=== PATIENT | female | born 1975 | race Caucasian/White ===

== ENCOUNTER 2017-07-01 11:00 | Emergency (ER) | payer OTHER ==
[~2017-07-01] VITALS: Ht 165.1 cm; Wt 109.3 kg
[~2017-07-01 11:00] MED LIST: APRESOLINE 10MG10 MG PO; BISOPROLOL 5MG T5 MG PO; BISOPROLOL FUMA1 TA3 PO; BYSTOLIC5 MG PO; CIPRO 500MG TA500 MG PO; HYDROCHLOROTHIA25 M1 PO; IBUPROFEN400 MG PO; LISINOPRIL 10MG10 MG PO; LISINOPRIL 5MG T5 MG NG; LISINOPRIL40 MG PO; NAPROXEN SODIU500 MG PO; OMNICEF 300 MG300 MG PO; POTASSIUM CHLO20 ME2 PO; PREDNISONE 20MG20 MG PO; TRAMADOL 50MG T50 MG PO; TRIAMTERENE AND1 CAP PO; VERAPAMIL HCL40 MG PO; VICODIN 5/500 T1 TAB PO; ZIAC 5 MG-6.251 TAB PO
[2017-07-01] MEDS ORDERED: BISOPROLOL FUMA10 MG PO (11:09)
[2017-07-01] MEDS ORDERED: HYDROCHLOROTHIA25 M1 PO (11:10)
[2017-07-01] MEDS ORDERED: APRESOLINE 10MG10 MG PO (11:11)
[2017-07-01 11:23] LABS: HEMOGLOBIN 12.9 g/dL (12.2-16.2); LYMPH # 3.4 K/mm3 (0.7-4.5)
--- NOTE | 2017-07-01 11:23 | Emergency Room Report ---
History of Present Illness Time Seen by MD Walker Presenting Problem in Triage Pt arrived:Walked Presenting Problem:PT REPORTS SQUEEZING TYPE MIDDLE STERNAL CHEST PAIN THAT IS RADIATING IN A SHARP MANNER TO L ARM PT STATES PAIN BEGAN LASTNIGHT AROUND 2230 PM WHILE AT WORK. PT REPORTS HAS HAD NAUSEA AND DIZZINESS INTERMITTENTLY SINCE PAIN BEGAN. PT WAS AT DR. 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 N Clinical Suspician of Infection? N Mental Status: 1 - Regular (Normal Baseline) Sepsis Risk:Low Sepsis Risk Have you (or family members/close friends) recently traveled outside the [place]? N If Yes, where/when: Have you had exposure to infectious disease within the past month? N TB? Other? Specify: Patient had pain to left chest last night at 2230 while at work; denies SOB, reports some mild nausea, no vomiting or abdominal pain, no calf pain or new edema, no diaphoresis, no syncope. Referred by PCP due to continued pain through today. It waxes and wanes, feels "tight", and radiates to LUE and to back and neck. No cough. Not positional. Denies known CAD, reports that she has neg hx DM , does have HTN, does not have hyperlipidemia, quite smoking in 2013, but does not have any FH of known CAD. ALLERGIES Coded Allergies: amoxicillin ("NERVOUS" 07/01/17) codeine ("SKIN CRAWL" 07/01/17) Home Medications Active Scripts POTASSIUM CHL (Potassium Chloride) 20 MEQ PO DAILY #30 TAB Ref 5 Prov: 10/11/14 Reported Medications Lisinopril (Lisinopril 40MG) 40 MG PO DAILY Bisoprolol Fumarate 10 MG PO BID HYDROCHLOROTHIAZIDE (Hydrochlorothiazide) 25 MG PO BID HYDRALAZINE HCL (Hydralazine HCl) 10 MG PO DAILY History Medical History General CAD? No Angina: No NC: No Hypertension? Yes Hyperlipidemia? No CHF? No DVT? No PE? No COPD? No Asthma? Yes Anemia? No GERD? No Gastric ulcers? No GI Bleed? No Hernia? No Thyroid Problems? No Hypothyroidism? No CVA? No Seizures? No Diabetes? No Renal Insuffiency? No End Stage Renal Disease? No UTI? Yes Stones? Yes GB Disease: No Nephritic Syndrome? No Asplenia? No Hepatitis? No Sickle Cell Disease? No Arthritis? Yes Migraines? No Cataracts? No Glaucoma? No MRSA? No HIV? No TB? No Anxiety? No Depression? No Cancer? 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 LMP 1-6 Days Ago Family History Family Hx Diabetes No CAD No Hypertension No Hyperlipidemia Yes Cancer Yes TB Yes Social History Smoking Hx Smoker: Former Smoker Tobacco: No Packs/day < 1 Pack Alcohol Alcohol: No Review of Systems All Other Systems Reviewed and Negative Cardiovascular see HPI Physical Exam Vital Signs Vital Signs Date Time Temp Pulse Resp B/P Pulse O2 O2 Flow FiO2 Ox Delivery Rate 07/01 1100 98.2 79 18 190/92 98 General Appearance normal appearance, WD/WN, no apparent distress Eye Exam - bilateral eye normal exam, bilateral eye PERRL Neck normal inspection, non-tender, supple, full range of motion (anterior scar, old, horizontal) Respiratory Status Yes: trachea midline, chest symmetrical, non tender chest. No: respiratory distress, tender on palpation, use of accessory muscles, pain on inspiration, pain on expiration, productive cough, non productive cough. Lung Sounds bilateral: normal breath sounds, lungs clear. Cardiovascular normal exam, regular rate/rhythm, no peripheral edema, no gallop, no JVD, no murmur, no rub, normal peripheral pulses Peripheral Pulses Pulses normal Yes Peripheral Pulses 2+ dorsalis pedis (R), 2+ dorsalis pedis (L) Gastrointestinal normal bowel sounds, normal exam, non tender, soft, no organomegaly, no guarding, no rebound Extremities non-tender, normal range of motion, normal inspection, normal capillary refill, no calf tenderness, no pedal edema Strength 5 Upper Ext (L), 5 Upper Ext (R), 5 Lower Ext (L), 5 Lower Ext (R) Neurologic alert, normal exam, no motor/sensory deficits, oriented x 3 Glascow Coma Scale Glascow Coma Scale Response Value EYE response: 4 Spontaneously 4 MOTOR response: 6 OBEYS 6 VERBAL response: 5 Oriented & Converses 5 Total 15 Skin intact, normal color, abrasions Medical Decision Making LABS/Meds/Orders Pt receiving controlled substance in ED? No Results/Orders Laboratory Tests 07/01/171114: Sodium 141, Potassium 3.4 L, Chloride 103, Carbon Dioxide 31, BUN 12, Creatinine 0.7, Estimated Creat Clear 184, Estimated GFR (MDRD) 93, Glucose 109 H, Calcium 9.0, Total Bilirubin 0.2, AST 24, ALT 33, Alkaline Phosphatase 72, Creatine Kinase 137, CK-MB (CK-2) Rel Index 0.4, CK and CKMB Interp 0.5, Troponin I < 0.02, Total Protein 8.1, Albumin 3.9, Globulin 4.2 H, Albumin/ Globulin Ratio 0.9 L, WBC 12.7 H, RBC 4.80, Hgb 12.9, Hct 39.7, MCV 82.6, RDW 13.9, Plt Count 356, MPV 7.8, Gran % 65.4, Gran # 8.3 H, Lymphocytes % 27.0, Monocytes % 5.4, Eosinophils % 1.8, Basophils % 0.4, Lymphocytes # 3.4, Monocytes # 0.7, Eosinophils # 0.2, Basophils # 0.1, PUBS MCHC 32.4, MCH 26.8 L Current Medication Orders Sig/Connie Start time Last Medication Dose Route Stop Time Status Admin Aspirin 324 MG ONCE ONE 07/01 1130 DC 07/01 PO 07/01 113 1126 Aspirin 0 .STK-MED ONE 07/01 112 DC .ROUTE Sodium Chloride 10 ML PRN PRN 07/01 1115 AC 07/01 IV 07/02 1112 1126 Orders Procedure Date/time Status ELECTROCARDIOGRAM REQUEST 07/01 111 Active CHEST(2 VIEWS-NOT PORTABLE) 07/01 111 Active IV SALINE LOCK 07/01 111 Active HEALTH AND SAFETY CONSULTANT 07/01 1112 Active CBC WITH AUTO DIFF 07/01 1112 Complete CARDIAC ENZYMES 07/01 1112 Complete CHEM 12 PROFILE 07/01 111 Complete 12 LEAD EKG-ARUN (INITIAL) 07/01 1110 Active CM/EKG CM/EKG EKG rate, NSR, rhythm, no evid. of ischemic chgs, no ectopy, normal QRS, normal CA, normal EKG (NSR 75;) XRAY/CT/US XRAY/CT/US XRAY chest XR interpretation by reviewed by me Xray Results normal/NAD (neg acute; hx sarcoidosis) Consult MD Physician Consult Time Called 1212 Reason Pt. Condition Comments Dr. Dias courtesy call Departure Departure Time of Disposition 1213 Disposition DC Home or Self Care(routine) Clinical Impression Primary Impression: Atypical chest pain Condition STABLE Referrals rAun ESTEBAN,Samson Goode (Family) Satnam ESTEBAN, Ruddy Patient Instructions DI for Atypical Chest Pain Additional Instructions Take low dose "baby aspirin" 81 mg by mouth daily per Dr. Dias; take one nitroglycerin tablet as needed for any chest pain in the future and go to closest ER if experiencing chest pain; see Dr. Hay in cardiology for further evaluation outpatient, call for appointment. Discharge Counseling Counseled pt/family regarding diagnosis, test results, medications/RX, home care, follow up needs Prescriptions Current Visit Scripts NITROGLYCERIN (Nitrostat) 0.4 MG SL [id number] PRN chest pain #10 TABLET ED Critical Care Critical Care No at 1217
--- NOTE | 2017-07-01 11:23 | Emergency Room Report ---
History of Present Illness Time Seen by MD Walker Presenting Problem in Triage Pt arrived:Walked Presenting Problem:PT REPORTS SQUEEZING TYPE MIDDLE STERNAL CHEST PAIN THAT IS RADIATING IN A SHARP MANNER TO L ARM PT STATES PAIN BEGAN LASTNIGHT AROUND 2230 PM WHILE AT WORK. PT REPORTS HAS HAD NAUSEA AND DIZZINESS INTERMITTENTLY SINCE PAIN BEGAN. PT WAS AT DR. 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 N Clinical Suspician of Infection? N Mental Status: 1 - Regular (Normal Baseline) Sepsis Risk:Low Sepsis Risk Have you (or family members/close friends) recently traveled outside the [place]? N If Yes, where/when: Have you had exposure to infectious disease within the past month? N TB? Other? Specify: Patient had pain to left chest last night at 2230 while at work; denies SOB, reports some mild nausea, no vomiting or abdominal pain, no calf pain or new edema, no diaphoresis, no syncope. Referred by PCP due to continued pain through today. It waxes and wanes, feels "tight", and radiates to LUE and to back and neck. No cough. Not positional. Denies known CAD, reports that she has neg hx DM , does have HTN, does not have hyperlipidemia, quite smoking in 2013, but does not have any FH of known CAD. ALLERGIES Coded Allergies: amoxicillin ("NERVOUS" 07/01/17) codeine ("SKIN CRAWL" 07/01/17) Home Medications Active Scripts POTASSIUM CHL (Potassium Chloride) 20 MEQ PO DAILY #30 TAB Ref 5 Prov: 10/11/14 Reported Medications Lisinopril (Lisinopril 40MG) 40 MG PO DAILY Bisoprolol Fumarate 10 MG PO BID HYDROCHLOROTHIAZIDE (Hydrochlorothiazide) 25 MG PO BID HYDRALAZINE HCL (Hydralazine HCl) 10 MG PO DAILY History Medical History General CAD? No Angina: No NM: No Hypertension? Yes Hyperlipidemia? No CHF? No DVT? No PE? No COPD? No Asthma? Yes Anemia? No GERD? No Gastric ulcers? No GI Bleed? No Hernia? No Thyroid Problems? No Hypothyroidism? No CVA? No Seizures? No Diabetes? No Renal Insuffiency? No End Stage Renal Disease? No UTI? Yes Stones? Yes GB Disease: No Nephritic Syndrome? No Asplenia? No Hepatitis? No Sickle Cell Disease? No Arthritis? Yes Migraines? No Cataracts? No Glaucoma? No MRSA? No HIV? No TB? No Anxiety? No Depression? No Cancer? 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 Family History Family Hx Diabetes No CAD No Hypertension No Hyperlipidemia Yes Cancer Yes TB Yes Social History Smoking Hx Smoker: Former Smoker Tobacco: No Packs/day < 1 Pack Alcohol Alcohol: No Review of Systems All Other Systems Reviewed and Negative Cardiovascular see HPI Physical Exam Vital Signs Vital Signs Date Time Temp Pulse Resp B/P Pulse O2 O2 Flow FiO2 Ox Delivery Rate 07/01 1100 98.2 79 18 190/92 98 General Appearance normal appearance, WD/WN, no apparent distress Eye Exam - bilateral eye normal exam, bilateral eye PERRL Neck normal inspection, non-tender, supple, full range of motion (anterior scar, old, horizontal) Respiratory Status Yes: trachea midline, chest symmetrical, non tender chest. No: respiratory distress, tender on palpation, use of accessory muscles, pain on inspiration, pain on expiration, productive cough, non productive cough. Lung Sounds bilateral: normal breath sounds, lungs clear. Cardiovascular normal exam, regular rate/rhythm, no peripheral edema, no gallop, no JVD, no murmur, no rub, normal peripheral pulses Peripheral Pulses Pulses normal Yes Peripheral Pulses 2+ dorsalis pedis (R), 2+ dorsalis pedis (L) Gastrointestinal normal bowel sounds, normal exam, non tender, soft, no organomegaly, no guarding, no rebound Extremities non-tender, normal range of motion, normal inspection, normal capillary refill, no calf tenderness, no pedal edema Strength 5 Upper Ext (L), 5 Upper Ext (R), 5 Lower Ext (L), 5 Lower Ext (R) Neurologic alert, normal exam, no motor/sensory deficits, oriented x 3 Glascow Coma Scale Glascow Coma Scale Response Value EYE response: 4 Spontaneously 4 MOTOR response: 6 OBEYS 6 VERBAL response: 5 Oriented & Converses 5 Total 15 Skin intact, normal color, abrasions Medical Decision Making LABS/Meds/Orders Pt receiving controlled substance in ED? No Results/Orders Laboratory Tests 07/01/171114: Sodium 141, Potassium 3.4 L, Chloride 103, Carbon Dioxide 31, BUN 12, Creatinine 0.7, Estimated Creat Clear 184, Estimated GFR (MDRD) 93, Glucose 109 H, Calcium 9.0, Total Bilirubin 0.2, AST 24, ALT 33, Alkaline Phosphatase 72, Creatine Kinase 137, CK-MB (CK-2) Rel Index 0.4, CK and CKMB Interp 0.5, Troponin I < 0.02, Total Protein 8.1, Albumin 3.9, Globulin 4.2 H, Albumin/ Globulin Ratio 0.9 L, WBC 12.7 H, RBC 4.80, Hgb 12.9, Hct 39.7, MCV 82.6, RDW 13.9, Plt Count 356, MPV 7.8, Gran % 65.4, Gran # 8.3 H, Lymphocytes % 27.0, Monocytes % 5.4, Eosinophils % 1.8, Basophils % 0.4, Lymphocytes # 3.4, Monocytes # 0.7, Eosinophils # 0.2, Basophils # 0.1, PUBS MCHC 32.4, MCH 26.8 L Current Medication Orders Sig/Connie Start time Last Medication Dose Route Stop Time Status Admin Aspirin 324 MG ONCE ONE 07/01 1130 DC 07/01 PO 07/01 113 1126 Aspirin 0 .STK-MED ONE 07/01 112 DC .ROUTE Sodium Chloride 10 ML PRN PRN 07/01 1115 AC 07/01 IV 07/02 1112 1126 Orders Procedure Date/time Status ELECTROCARDIOGRAM REQUEST 07/01 111 Active CHEST(2 VIEWS-NOT PORTABLE) 07/01 111 Active IV SALINE LOCK 07/01 111 Active VOCATIONAL REHABILITATION TECHNICIAN 07/01 1112 Active CBC WITH AUTO DIFF 07/01 1112 Complete CARDIAC ENZYMES 07/01 1112 Complete CHEM 12 PROFILE 07/01 111 Complete 12 LEAD EKG-ARUN (INITIAL) 07/01 1110 Active CM/EKG CM/EKG EKG rate, NSR, rhythm, no evid. of ischemic chgs, no ectopy, normal QRS, normal AL, normal EKG (NSR 75;) XRAY/CT/US XRAY/CT/US XRAY chest XR interpretation by reviewed by me Xray Results normal/NAD (neg acute; hx sarcoidosis) Consult MD Physician Consult Time Called 1212 Reason Pt. Condition Comments Dr. Dias courtesy call Departure Departure Time of Disposition 1213 Disposition DC Home or Self Care(routine) Clinical Impression Primary Impression: Atypical chest pain Condition STABLE Referrals Arun ESTEBAN,Samson Goode (Family) Satnam ESTEBAN, Ruddy Patient Instructions DI for Atypical Chest Pain Additional Instructions Take low dose "baby aspirin" 81 mg by mouth daily per Dr. Dias; take one nitroglycerin tablet as needed for any chest pain in the future and go to closest ER if experiencing chest pain; see Dr. Hay in cardiology for further evaluation outpatient, call for appointment. Discharge Counseling Counseled pt/family regarding diagnosis, test results, medications/RX, home care, follow up needs Prescriptions Current Visit Scripts NITROGLYCERIN (Nitrostat) 0.4 MG SL [id number] PRN chest pain #10 TABLET ED Critical Care Critical Care No at 1217
[2017-07-01 11:46] LABS: BUN 12 mg/dL (7-18); GFR (ESTIMATED) 93 ML/MIN (59-)
[2017-07-01] MEDS ORDERED: NITROGLYCERIN0.4 MG SL (12:17)
[2017-07-01 12:39] VITALS: BP 162/102
--- NOTE | 2017-07-01 13:09 | RADIOLOGY REPORT PS360 ---
CHEST(2 VIEWS-NOT PORTABLE) HISTORY: CHEST PAIN ORDERING PHYSICIAN: Tejal Walton MD PATIENT AGE: 42 years COMPARISON: 10/10/2014 FINDINGS: The cardiomediastinal silhouette and pulmonary vascularity are within normal limits. The lungs are clear without infiltrates, suspicious nodules, or pleural effusions. No acute bony abnormalities. IMPRESSION: Negative chest, no acute finding
== END 2017-07-01 12:40 | disposition home or self-care (01) ==
LOC: ER 11:00
PROVIDERS: Emergency Medicine
DX: R07.89 Other chest pain (principal); I10 Essential (primary) hypertension; Z79.899 Other long term (current) drug therapy; Z87.891 Personal history of nicotine dependence